=== PATIENT | female | born 1985 | race African-American/Black ===

== ENCOUNTER → 2018-08-25 | Outpatient (CLI) | payer BC ==
[2018-08-25 16:02] LABS: Hepatitis C IgG Antibody Non-Reactive (Non-Reactive)
[2018-08-25 16:09] LABS: Cardiolipin Ab IgA Interp NEGATIVE (NEGATIVE); Cardiolipin Ab IgG Interp NEGATIVE (NEGATIVE); Cardiolipin Ab IgM Interp NEGATIVE (NEGATIVE); Cardiolipin IgA Antibody <0.5 U/mL; Cardiolipin IgM Antibody <0.2 U/mL
[2018-08-25 18:07] LABS: HIV 1 AB Non-Reactive (Non-Reactive); HIV AB P24 Non-Reactive (Non-Reactive); HIV P24 AG Non-Reactive (Non-Reactive)
== END | disposition home or self-care (01) ==
LOC: LABWHC1 09:53
PROVIDERS: ATTEND Obstetrics & Gynecology Reproductive Endocrinology
DX: N96 Recurrent pregnancy loss (principal)
CPT/HCPCS: 36415; 82397; 83001; 83002; 83090; 84146; 84443; 85307; 85613; 85730; 86147; 86762; 86780; 86787; 86803; 86850; 86900; 86901; 87340; 87390

== ENCOUNTER → 2019-04-25 | Outpatient (CLI) | payer BC ==
--- NOTE | 2019-04-25 15:05 | FL ---
EXAMINATION TYPE: FL hysterosalpingography DATE OF EXAM: 04/25/2019 HISTORY: Infertility. Informed consent was obtained and all the patient's questions were answered. Pulmonary film of the p pb reveals no distinct abnormality. A speculum was introduced and the external cervical os was lo calize. The external cervical os was cleansed and a Betadine solution on 3 occasions. Hysterosalpin gography catheter was introduced into the uterus and balloon insufflation device deployed. Approxima tely 12 cc of nonionic contrast was injected in a retrograde manner. The uterus has a normal size shape and appearance. No persistent uterine filling defects are seen. Both fallopian tubes fill with contrast normally. There is spill of contrast into the peritoneal cav ity bilaterally left greater than right. IMPRESSION: Normal hysterosalpingogram with bilateral spill of contrast into the peritoneal cavity.
== END | disposition home or self-care (01) ==
LOC: RADUSWWP 13:35
PROVIDERS: ATTEND Obstetrics & Gynecology Reproductive Endocrinology
DX: N97.9 Female infertility, unspecified (principal)
CPT/HCPCS: 58340; 74740; Q9967

== ENCOUNTER → 2020-02-28 | Outpatient (CLI) | payer BC ==
[2020-02-28 17:36] LABS: Estradiol 54.9 pg/mL; Luteinizing Hormone 6.2 mIU/mL
[2020-02-28 17:37] LABS: Follicle Stimulating Hormone 11.3 mIU/mL
== END | disposition home or self-care (01) ==
LOC: LABWHC1 10:16
PROVIDERS: ATTEND Obstetrics & Gynecology Reproductive Endocrinology
DX: N97.9 Female infertility, unspecified (principal)
CPT/HCPCS: 36415; 82670; 83001; 83002; 84144

== ENCOUNTER 2020-09-07 | Emergency (ER) | payer BC | END 2020-09-07 03:56 | disposition home or self-care (01) ==

== ENCOUNTER 2021-03-20 05:53 | Inpatient (IN) | payer BC ==
--- NOTE | 2021-03-19 07:15 | P.HPOB ---
History of Present Illness H&P Date: 03/19/21 Chief Complaint: Requested induction of labor This patient is a pleasant 35-year-old 3 para 2 female estimated date of confinement 03/27/2021 estimated gestational age 39-0/7 weeks which is set by known date of insemination who presents for requested induction of labor. Patient's care has been complicated by advanced maternal age. She has had normal ultrasounds and antepartum testing. She did decline maternal medicine referral. Materni T21 showed 46 XX. is the result of intrauterine insemination. Patient's is complicated by Covid at 29 weeks without sequelae. Patient is now uncomfortable and requested induction of labor. Patient's group B strep was negative however she does have a history of positive strep in a previous . Review of Systems Genitourinary: Reports Menstruation: Reports amenorrhea Past Medical History Past Medical History: No Reported History History of Any Multi-Drug Resistant Organisms: None Reported Past Surgical History: No Surgical Hx Reported Additional Past Surgical History / Comment(s): tube opening Past Anesthesia/Blood Transfusion Reactions: No Reported Reaction Past Psychological History: No Psychological Hx Reported Smoking Status: Never smoker Past Alcohol Use History: None Reported Past Drug Use History: None Reported Medications and Allergies Home Medications Medication Instructions Recorded Confirmed Type Ondansetron Odt [Zofran ODT] 4 mg PO Q8HR PRN #15 tab 11/21/14 Rx Sucralfate [Carafate] 1 gm PO BID 5 Days tablet 11/21/14 Rx Allergies Allergy/AdvReac Type Severity Reaction Status Date / Time No Known Allergies Allergy Verified 09/07/20 01:23 Exam - OBG Physical Exam Abdomen: bowel sounds normal, no diffuse tenderness, no bruit present, no guarding noted, no hepatomegaly, no splenomegaly, no mass Vulva: both: normal Vagina: normal moisture, no discharge Cervix: no lesion (Cervix in the office 2 cm soft -2 station.), no discharge Uterus: enlarged Results blood work shows she is O positive, rubella immune, RPR is nonreactive, hepatitis B is negative, maternity to 21 shows her to be normal 46 XX chromosomes, growth ultrasounds and anatomy ultrasounds have been normal. Assessment and Plan Assessment: This is a pleasant 35-year-old 3 para 2 female 39-0/7 weeks gestation who is admitted to labor and delivery for requested induction of labor. Patient has a negative group B strep culture however she does have a history of a positive in the past therefore she'll be given IV antibiotics. Plan is induction of labor with Pitocin per protocol and anticipate vaginal delivery. (1) 39 weeks gestation of Status: Acute Code(s): Z3A.39 - 39 WEEKS GESTATION OF SNOMED Code(s): 39237375 (2) Elderly multigravida Status: Acute Code(s): O09.529 - SUPERVISION OF ELDERLY MULTIGRAVIDA, UNSPECIFIED TRIMESTER SNOMED Code(s): 606776268
[2021-03-20] MEDS: LACTATED RINGERS 1,000 ML IV SCH ×2 (06:04→09:16)
[2021-03-20] MEDS ORDERED: METHYLERGONOVINE 0.2 MG/ML 1 ML AMP IM PRN (06:17)
[2021-03-20] MEDS ORDERED: OXYTOCIN 30 UNITS/500 ML NS 30 UNIT in SALINE 1 500ML.BAG IV SCH ×2 (06:17→11:35)
[2021-03-20] MEDS ORDERED: OXYTOCIN 10 UNIT/ML 1 ML VIAL IM PRN (06:17)
[2021-03-20] MEDS ORDERED: LIDOCAINE 0.5% (PF) 5 MG/ML (50 ML SDV) SQ PRN (06:17)
[2021-03-20] MEDS ORDERED: CARBOPROST TROMETHAMINE 250 MCG/ML 1 ML AMP IM PRN (06:17)
[2021-03-20] MEDS ORDERED: TERBUTALINE 1 MG/ML VIAL SQ PRN (06:17)
[2021-03-20] MEDS ORDERED: AMPICILLIN 2,000 MG in SODIUM CHLORIDE 0.9% 100 ML IVPB ONE (06:30)
[2021-03-20 07:03] LABS: Basophils % (A) 0 %; Eosinophils # (A) 0.1 k/uL (0-0.7); Eosinophils % (A) 1 %; HGB 13.1 gm/dL (11.4-16.0); Lymphocytes # (A) 2.1 k/uL (1.0-4.8); Lymphocytes % (A) 26 %; MCH 31.3 pg (25.0-35.0); MCHC 32.8 g/dL (31.0-37.0); MCV 95.4 fL (80.0-100.0); Mean Platelet Volume 7.8; Monocytes # (A) 0.4 k/uL (0-1.0); Monocytes % (A) 5 %; Neutrophils # (A) 5.1 k/uL (1.3-7.7); Neutrophils % (A) 65 %; Platelet Count 320 k/uL (150-450); RDW 13.3 % (11.5-15.5); WBC 7.9 k/uL (3.8-10.6)
[2021-03-20] MEDS ORDERED: fentaNYL (PF) 50 MCG/ML 5 ML AMP ONE (09:27)
[2021-03-20] MEDS ORDERED: ROPIVACAINE 5MG/ML 20ML VIAL ONE (09:27)
[2021-03-20] MEDS ORDERED: SODIUM CHLORIDE 0.9% 100 ML BAG ONE (09:27)
[2021-03-20] MEDS ORDERED: AMPICILLIN 1,000 MG in SODIUM CHLORIDE 0.9% 50 ML IVPB SCH (10:30)
[2021-03-20] MEDS ORDERED: ACETAMINOPHEN TAB 325 MG TAB PO PRN (11:35)
[2021-03-20] MEDS ORDERED: BENZOCAINE/MENTHOL SPRAY 1 GM/SPRAY AEROSOL TOPICAL PRN (11:35)
[2021-03-20] MEDS ORDERED: bisacodyL 10 MG SUPP RECTAL PRN (11:35)
[2021-03-20] MEDS ORDERED: SIMETHICONE 80 MG CHEWABLE PO PRN (11:35)
[2021-03-20] MEDS ORDERED: HYDROCORTISONE 2.5% RECTAL CREAM 30 GM TUBE RECTAL PRN (11:35)
[2021-03-20] MEDS ORDERED: diphenhydrAMINE 25 MG CAP PO PRN (11:35)
[2021-03-20] MEDS ORDERED: LANOLIN CREAM 5 GM TUBE TOPICAL PRN (11:35)
[2021-03-20] MEDS ORDERED: ZOLPIDEM 5 MG TAB PO PRN (11:35)
[2021-03-20] MEDS ORDERED: diphenhydrAMINE 50 MG/ML 1 ML VIAL IVP PRN (11:35)
[2021-03-20] MEDS ORDERED: IBUPROFEN 600 MG TAB PO PRN (11:35)
--- NOTE | 2021-03-20 11:56 | P.PROBDLV ---
Vaginal Delivery Note - . Vaginal Delivery Note: Normal vaginal delivery viable female Apgars 9 and 9 delivery time is 1107 hrs. Please see dictated H&P for intimate details of this patient's admission. Brief summary this is a pleasant 35-year-old 4 para 2 female 39-0/7 weeks gestation admitted to labor and delivery for requested induction of labor. Patient is dilated 2 cm on admission and I did give her ampicillin due to history of positive strep with a previous although she is negative this . Patient has Pitocin augmentation of labor and artificial rupture membranes. Labor progresses quickly she does get an epidural for pain control. Patient is to complete pushes a proximally 1 time and pushes the head to the perineum. Posterior perineum was supported with controlled delivery of infant's head over the intact perineum. Mouth and nares are bulb suctioned. Infant is straight occiput anterior presentation. Gentle downward traction, we have delivery the anterior and posterior shoulder and rest this infant's body. This is a vigorous viable female Apgars 9 and 9 delivery time is 11 7 hours. After delivery of the the umbilical cord is loud a clip pulsating then doubly clamped and cut. It does appear to be trivascular. The placenta is then spontaneously delivered intact. Inspection of perineum shows superficial laceration the right periurethral area that does not require any stitches. Estimated blood loss is 100 mL. There are no complications. All counts are correct 3. and mother are stable delivery room.
[2021-03-20] MEDS: SENNOSIDES-DOCUSATE SODIUM 1 EACH TAB PO SCH ×2 (14:33→20:27)
[2021-03-21 08:32] VITALS: BP 110/73; PULSE 85; RESP 14; TEMP 97.6
[2021-03-21] MEDS: SENNOSIDES-DOCUSATE SODIUM 1 EACH TAB PO SCH (10:16)
--- NOTE | 2021-03-21 10:36 | P.DS ---
Providers Date of admission: 03/20/21 05:53 Expected date of discharge: 03/21/21 Attending physician: Malcolm Price Primary care physician: Stated None - Discharge Diagnosis(es) (1) Normal vaginal delivery Current Visit: Yes Status: Acute Hospital Course: Patient presented for induction of labor. She underwent a normal vaginal delivery. course was uncomplicated. She denies nausea, vomiting, chest pain, shortness of breath or calf pain. Patient will be discharged home post day #1 in stable condition to follow-up with Dr. Price in 6 weeks. Plan - Discharge Summary New Discharge Prescriptions: New Ibuprofen [Motrin] 600 mg PO Q6HR PRN #30 tab PRN Reason: Mild Pain (Scale 1 To 3) No Action Pnv,Calcium 72/Iron/Folic Acid [ Plus Tablet] 1 each PO DAILY Discharge Medication List Pnv,Calcium 72/Iron/Folic Acid [ Plus Tablet] 1 each PO DAILY 03/20/21 [History] Ibuprofen [Motrin] 600 mg PO Q6HR PRN #30 tab 03/21/21 [Rx] Follow up Appointment(s)/Referral(s): Malcolm Price MD [STAFF PHYSICIAN] - 04/29/21 8:45 am Discharge Disposition: HOME SELF-CARE
== END 2021-03-21 12:50 | disposition home or self-care (01) | DRG 807 ==
LOC: 4FBP 05:53
PROVIDERS: ADMIT Obstetrics & Gynecology; ATTEND Obstetrics & Gynecology
PROC: 10E0XZZ Delivery of Products of Conception, External Approach (ICD-10-PCS; principal; 2021-03-20)
PROC: 10907ZC Drainage of Amniotic Fluid, Therapeutic from Products of Conception, Via Natural or Artificial Opening (ICD-10-PCS; 2021-03-20)
PROC: 3E033VJ Introduction of Other Hormone into Peripheral Vein, Percutaneous Approach (ICD-10-PCS; 2021-03-20)
PROC: 0UQMXZZ Repair Vulva, External Approach (ICD-10-PCS; 2021-03-20)
DX: O71.82 Other specified trauma to perineum and vulva (principal); Z37.0 Single live birth; Z3A.39 39 weeks gestation of pregnancy; Z86.16 Personal history of COVID-19
CPT/HCPCS: 85025; 86850; 86900; 86901

== ENCOUNTER → 2023-05-12 | Outpatient (CLI) | payer BC ==
[2023-05-12 18:09] LABS: Basophils # (A) 0.02 X 10*3/uL (0.00-0.10); Basophils % (A) 0.4 %; Eosinophils # (A) 0.03 X 10*3/uL (0.04-0.35); Eosinophils % (A) 0.6 %; HCT 40.2 % (37.2-46.3); HGB 13.1 g/dL (12.0-15.0); Lymphocytes # (A) 1.16 X 10*3/uL (0.90-5.00); Lymphocytes % (A) 23.5 %; MCH 31.2 pg (27.0-32.0); MCHC 32.6 g/dL (32.0-37.0); MCV 95.7 FL (80.0-97.0); Mean Platelet Volume 9.5 FL (9.5-12.2); Monocytes % (A) 8.1 %; NRBC Per 100 WBC 0 X 10*3/uL (0.00-0.01); Neutrophils # (A) 3.32 X 10*3/uL (1.80-7.70); Neutrophils % (A) 67.2 %; Platelet Count 414 X 10*3/uL (140-440); RDW 12.2 % (11.5-14.5); WBC 4.94 X 10*3/uL (4.50-10.00)
[2023-05-12 19:05] LABS: ALT 20 U/L (8-44); AST 23 U/L (13-35); Albumin 4.4 g/dL (3.8-4.9); Albumin/Globulin Ratio 1.38 Ratio (1.60-3.17); Alkaline Phosphatase 77 U/L (41-126); BUN/Creat Ratio 17.88 Ratio (12.00-20.00); Blood Urea Nitrogen 14.3 mg/dL (9.0-27.0); Calcium 9.7 mg/dL (8.7-10.3); Carbon Dioxide 25.9 mmol/L (21.6-31.8); Chloride 103 mmol/L (96-109); Chol/HDL Ratio 3.75 Ratio; Globulin 3.2 g/dL (1.6-3.3); Glucose 101 mg/dL (70-110); LDL Cholesterol,Calculated 118.5 mg/dL (0.0-131.0); Potassium 4.2 mmol/L (3.5-5.5); Sodium 140 mmol/L (135-145); Total Bilirubin 0.5 mg/dL (0.3-1.2); Total Protein 7.6 g/dL (6.2-8.2)
== END | disposition home or self-care (01) ==
LOC: LABWHC1 10:40
PROVIDERS: ATTEND Family Medicine
DX: Z00.00 Encounter for general adult medical examination without abnormal findings (principal)
CPT/HCPCS: 36415; 80053; 80061; 84443; 85025